=== PATIENT | female | born 1995 | race Two or more races ===

== ENCOUNTER 2018-01-26 20:06 | Emergency (ER) | payer OTHER ==
[~2018-01-26] VITALS: Ht 162.6 cm; Wt 86.9 kg
[2018-01-26 21:12] LABS: BASOPHILS # (AUTO) 0.05 x10^3/uL (0-0.1); BASOPHILS % (AUTO) 1 % (0-1); EOSINOPHILS # (AUTO) 0.36 x10^3/uL (0-0.4); EOSINOPHILS % (AUTO) 3 % (1-7); LYMPHOCYTES # (AUTO) 2.38 x10^3/uL (1-3.4); LYMPHOCYTES % (AUTO) 22 % (22-44); MD NO; MEAN CORPUSCULAR HGB CONC 33.9 g/dL (32.4-35.8); MEAN CORPUSCULAR VOLUME 88.7 fL (80-100); MEAN PLATELET VOLUME 7.3 fL (7.4-10.4); MONOCYTES # (AUTO) 0.78 x10^3/uL (0.2-0.8); MONOCYTES % (AUTO) 7 % (2-9); NEUTROPHILS # (AUTO) 7.15 x10^3/uL (1.8-6.8); NEUTROPHILS % (AUTO) 67 % (42-75); PLATELET COUNT 356 x10^3/uL (130-400); RED BLOOD COUNT 4.32 x10^6/uL (3.82-5.3); RED CELL DISTRIBUTION WIDTH 13.2 % (9.6-15.2)
[2018-01-26 21:23] LABS: ALANINE AMINOTRANSFERASE 21 U/L (12-78); ALBUMIN 3.5 g/dL (3.4-5.0); ANION GAP 7 mmol/L (5-15); CALCIUM 8.9 mg/dL (8.5-10.1); CHLORIDE 108 mmol/L (98-107); CREATININE 0.81 mg/dL (0.55-1.02)
[2018-01-26 21:28] LABS: ALKALINE PHOSPHATASE 90 U/L (45-117); BILIRUBIN,TOTAL 0.4 mg/dL (0.2-1.0); TOTAL PROTEIN 8.2 g/dL (6.4-8.2)
[2018-01-26] MEDS ORDERED: DICYCLOMINE 10 MG CAPSULE PO ONE (21:30)
[2018-01-26 21:46] LABS: CULTURE INDICATED? YES; MICROSCOPIC INDICATED
[2018-01-26] MEDS ORDERED: DICYCLOMINE 10 MG CAPSULE ONE (21:46)
[2018-01-26 23:32] VITALS: BP 112/73
== END 2018-01-27 00:39 | disposition home or self-care (01) ==
LOC: ED 23:31
DX: R10.84 Generalized abdominal pain (principal)
CPT/HCPCS: 36415; 76700; 80053; 81001; 83690; 84703; 85025; 86677; 87086; 93005; 99285

== ENCOUNTER 2018-04-24 03:58 | Emergency (ER) | payer OTHER ==
[~2018-04-24] VITALS: Ht 165.1 cm; Wt 88.5 kg
[2018-04-24 03:59] VITALS: BP 116/77
== END 2018-04-24 05:59 | disposition home or self-care (01) ==
LOC: ED 05:45
DX: S81.011A Laceration without foreign body, right knee, initial encounter (principal); G89.11 Acute pain due to trauma; W01.0XXA Fall on same level from slipping, tripping and stumbling without subsequent striking against object, initial encounter; Y93.01 Activity, walking, marching and hiking; Y92.009 Unspecified place in unspecified non-institutional (private) residence as the place of occurrence of the external cause; Y99.8 Other external cause status
CPT/HCPCS: 99284

== ENCOUNTER 2018-09-09 17:25 | Emergency (ER) | payer OTHER ==
[~2018-09-09] VITALS: Ht 162.6 cm; Wt 88.0 kg
[2018-09-09 18:05] LABS: BASOPHILS # (AUTO) 0.01 x10^3/uL (0-0.1); BASOPHILS % (AUTO) 0 % (0-1); EOSINOPHILS # (AUTO) 0.03 x10^3/uL (0-0.4); EOSINOPHILS % (AUTO) 0 % (1-7); LYMPHOCYTES # (AUTO) 0.52 x10^3/uL (1-3.4); LYMPHOCYTES % (AUTO) 3 % (22-44); MD NO; MEAN CORPUSCULAR HEMOGLOBIN 29.9 pg (27.0-34.8); MEAN CORPUSCULAR HGB CONC 33.6 g/dL (32.4-35.8); MEAN PLATELET VOLUME 7.3 fL (7.4-10.4); MONOCYTES % (AUTO) 2 % (2-9); NEUTROPHILS % (AUTO) 94 % (42-75); PLATELET COUNT 367 x10^3/uL (130-400); RED BLOOD COUNT 4.78 x10^6/uL (3.82-5.3); RED CELL DISTRIBUTION WIDTH 13.6 % (9.6-15.2)
[2018-09-09 18:14] LABS: ANION GAP 8 mmol/L (5-15); CALCIUM 8.7 mg/dL (8.5-10.1); CHLORIDE 108 mmol/L (98-107)
[2018-09-09 18:20] LABS: CULTURE INDICATED? YES; MICROSCOPIC INDICATED
[2018-09-09 18:20] LABS: ALANINE AMINOTRANSFERASE 27 U/L (12-78); ALKALINE PHOSPHATASE 116 U/L (45-117); BILIRUBIN,TOTAL 0.7 mg/dL (0.2-1.0); CREATININE 0.84 mg/dL (0.55-1.02); TOTAL PROTEIN 8.8 g/dL (6.4-8.2)
[2018-09-09] MEDS ORDERED: ONDANSETRON ODT 4 MG PO ONE (18:30)
[2018-09-09] MEDS ORDERED: DICYCLOMINE 10 MG/ML, 2ML IM ONE (18:30)
[2018-09-09] MEDS ORDERED: DICYCLOMINE 10 MG/ML, 2ML ONE (18:41)
[2018-09-09] MEDS ORDERED: ONDANSETRON 2MG/ML, 2ML ONE (18:41)
[2018-09-09] MEDS ORDERED: MORPHINE SULFATE 4 MG/ML, 1ML ONE (18:51)
[2018-09-09] MEDS ORDERED: morphine SULFATE 10 MG/ML, 1ML IVPush ONE (19:00)
[2018-09-09] MEDS ORDERED: ONDANSETRON 2MG/ML, 2ML IVPush ONE (19:00)
[2018-09-09] MEDS ORDERED: OMNIPAQUE 350 MG/ML, 100ML BOTTLE ONE (19:52)
[2018-09-09 20:56] VITALS: BP 108/59
== END 2018-09-09 20:58 | disposition home or self-care (01) ==
LOC: ED 18:04
DX: N30.00 Acute cystitis without hematuria (principal); R11.2 Nausea with vomiting, unspecified; R19.7 Diarrhea, unspecified
CPT/HCPCS: 36415; 74177; 80053; 81001; 84703; 85025; 87086; 96372; 96374; 96375; 99284; J0500; J2270; J2405; Q9967

== ENCOUNTER 2020-12-12 11:57 | Emergency (ER) | payer OTHER ==
[~2020-12-12] VITALS: Ht 165.1 cm; Wt 90.0 kg
--- NOTE | 2020-12-12 12:24 | NUR ---
[employer] SPECIALIST: MAYKEL X 1 @ 1321
--- NOTE | 2020-12-12 13:35 | NUR ---
PT BROUGHT BACK TO ROOM FROM TRIAGE. PT FELL ROLLER SKATING 2 DAYS AGO AND IS IN 10/10 PAIN WHILE SITTING. PT STATES THAT HER LEGS ALSO GO NUMB WHEN SHE SITS. PT DENIES ANY PAIN WHILE STANDING
--- NOTE | 2020-12-12 13:45 | NUR ---
PT MOVED TO ROOM 40. REPORT GIVEN TO MARLENA RINCON.
--- NOTE | 2020-12-12 13:46 | NUR ---
pt moved to room 40, this rn is assuming care, report recieved, vss, nadn
[2020-12-12] MEDS ORDERED: OXYcodone/APAP 5/325MG TABLET PO ONE (14:00)
--- NOTE | 2020-12-12 14:04 | NUR ---
pt to xray
[2020-12-12] MEDS ORDERED: OXYcodone/APAP 5/325MG TABLET ONE (14:26)
[2020-12-12] MEDS ORDERED: LEVO1.5T10 PO (14:33)
--- NOTE | 2020-12-12 14:33 | NUR ---
pt medicated per emar. VS updated and wnl. pt resting with no complaints. Call button within reach.
[2020-12-12 14:34] VITALS: BP 108/69
--- NOTE | 2020-12-12 15:09 | NUR ---
Pt dressing self for d/c.
== END 2020-12-12 15:23 | disposition home or self-care (01) ==
LOC: ED 15:16
DX: S30.0XXA Contusion of lower back and pelvis, initial encounter (principal); X58.XXXA Exposure to other specified factors, initial encounter; Y93.89 Activity, other specified; Y92.89 Other specified places as the place of occurrence of the external cause; Y99.8 Other external cause status
CPT/HCPCS: 72220; 99283

== ENCOUNTER 2021-03-11 12:41 | Emergency (ER) | payer OTHER ==
[~2021-03-11] VITALS: Ht 165.1 cm; Wt 91.0 kg
[~2021-03-11 12:41] MED LIST: LEVO1.5T10 PO
[2021-03-11 13:09] VITALS: BP 121/68
--- NOTE | 2021-03-11 15:28 | NUR ---
PT AMBULATED STEADLY FROM LOBBY TO ROOM WITH TECH. PT REPORTS BILAT FRONTAL 'THROBBING' HEADACHE SINCE YESTERDAY. CONSTANT, 7/10 WITH ASSOCIATED PHOTOPHOBIA. DENIES RECENT TRAUMA, N/V, CHANGES IN SPEECH OR VISION, WEAKNESS OR DIZZINESS. NO IMPROVEMENT W OTC RX. NO GROSS NEURO DEFICIT. HX BANERJEE. NOT ON PROPHYLACTIC RX. BP/SPO2 MONITOR IN PLACE.
[2021-03-11] MEDS ORDERED: SODIUM CHLORIDE 0.9% 1,000ML IVBOLUS ONE (16:00)
[2021-03-11] MEDS ORDERED: DIPHENHYDRAMINE 50 MG/ML, 1ML IVPush ONE (16:00)
[2021-03-11] MEDS ORDERED: PROCHLORPERAZINE 5 MG/ML, 2ML IVPush ONE (16:00)
[2021-03-11] MEDS ORDERED: DIPHENHYDRAMINE 50 MG/ML, 1ML ONE (16:01)
[2021-03-11] MEDS ORDERED: PROCHLORPERAZINE 5 MG/ML, 2ML ONE (16:01)
--- NOTE | 2021-03-11 16:14 | NUR ---
REPORT RECEIVED FROM ASAD MENDIOLA. ASSUMING CARE OF PT AT THIS TIME.
--- NOTE | 2021-03-11 16:15 | NUR ---
MEDICATED PER EMAR FOR PAIN. REPORT TO MARLENA REEDER
--- NOTE | 2021-03-11 16:24 | NUR ---
PT AMBULATED TO THE BR W/ A STEADY GAIT.
--- NOTE | 2021-03-11 16:30 | NUR ---
PT REPORTS HEADACHE RESOLVED, AT BEDSIDE. PT REPORTS THAT SHE WOULD LIKE TO BE DC. FELECIA MORALES. AWAITING DC [facility].
--- NOTE | 2021-03-11 16:48 | NUR ---
Patient given discharge instructions and they have confirmed that they understand the instructions. Patient ambulatory with steady gait.
== END 2021-03-11 16:49 | disposition home or self-care (01) ==
LOC: ED 15:53
DX: G43.019 Migraine without aura, intractable, without status migrainosus (principal)
CPT/HCPCS: 96361; 96374; 96375; 99284; J0780; J1200; J7030